=== PATIENT | male | born 1965 | race Caucasian/White ===

== ENCOUNTER 2023-04-18 10:57 | Inpatient (IN) | payer BC, SELFPAY ==
[2023-04-18] VITALS (8 sets, daily range): BP systolic 127–156; BP diastolic 89–99; PULSE 88–100; RESP 18–20; TEMP 36.4–36.9; O2SAT 97–100; BMI 28.1
--- NOTE | ~2023-04-18 | XR_ITS ---
EXAMINATION: XR chest 1V portable DATE: 04/18/2023 14:03 INDICATION: Cough. TECHNIQUE: A single frontal view of the chest was obtained. COMPARISON: None. FINDINGS: There is no pneumonia, pleural effusion, or pneumothorax. The heart size is normal. IMPRESSION: 1. No acute cardiopulmonary disease. Reviewed, dictated and finalized at location A. TING MACHINE OPERATOR HELPER
--- NOTE | ~2023-04-18 | CT_ITS ---
EXAMINATION: CT brain wo con DATE: 04/18/2023 12:08 INDICATION: Confusion. TECHNIQUE: Computed tomography (CT) of the head was performed without intravenous contrast. The mA wa s adjusted according to patient size. Iterative reconstruction technique was employed. The dose-lengt h product was 605.33 mGy-cm. COMPARISON: None FINDINGS: There is no intracranial hemorrhage, acute infarction, or abnormal intracranial mass lesion . There are scattered areas of low attenuation in the cerebral white matter. The ventricles are angely l in size. There is mild mucosal thickening in the paranasal sinuses. The mastoid air cells are angely l. The orbits are normal. IMPRESSION: 1. Moderate nonspecific cerebral white matter disease, which likely represents chronic small vessel i schemic disease. Reviewed, dictated and finalized at location A. EURIZING MACHINE OPERATOR IMPRESSION: 1. Moderate nonspecific cerebral white matter disease, which likely represents chronic small vessel ischemic disease.
--- NOTE | 2023-04-18 11:41 | ECG_ITS ---
Measurements Intervals [place] Rate: 94 P: 28 GA: 124 QRS: 32 QRSD: 90 T: 39 QT: 383 QTc: 480 Interpretive Statements SINUS RHYTHM VOLTAGE CRITERIA FOR LVH BORDERLINE ECG NO PREVIOUS ECG AVAILABLE FOR COMPARISON Electronically Signed On 04-18-2023 14:35:22 SECURITY SUPPORT ANALYST by Rich Murrell D.O.
--- NOTE | 2023-04-18 11:45 | PC.NURSE ---
Symptoms and NIH scale reviewed with Dr. Ingram, CT scan ordered while pt waiting on room
[2023-04-18 12:02] LABS: Basophils Absolute Auto 0.1 K/mm3 (0.0-0.1); Basophils Percent Auto 0.7 % (0.2-1.2); Eosinophils Absolute Auto 0.1 K/mm3 (0-0.3); Eosinophils Percent Auto 0.8 % (0-4.4); Hematocrit 34.1 % (42.0-52.0); Hemoglobin 11.7 g/dL (14.0-18.0); Immature Granulocyte Absolute 0.06 K/mm3 (0.00-0.031); Immature Granulocyte Percent A 0.5 % (0-0.5); Lymphocytes Absolute Auto 1.43 K/mm3 (0.9-3.2); Lymphocytes Percent Auto 11.4 % (18.3-44.2); Mean Corpuscular HGB Conc 34.3 g/dl (32-36); Mean Corpuscular Hemoglobin 30.3 pg (26-34); Mean Corpuscular Volume 88.3 fl (80-100); Mean Platelet Volume 10.5 fl (7.4-10.4); Monocytes Absolute Auto 1.5 K/mm3 (0.1-0.6); Monocytes Percent Auto 11.9 % (2.6-8.5); Neutrophils Absolute Auto 9.3 K/mm3 (1.3-6.7); Neutrophils Percent Auto 74.7 % (45.5-73.1); Platelet Count Result 349 k/mm3 (150-375); Red Blood Count 3.86 M/mm3 (4.6-6.20); White Blood Count 12.5 K/mm3 (4.5-10.0)
[2023-04-18 12:16] LABS: Alanine Aminotransferase 18 U/L (6-50); Albumin Level 4.1 g/dL (3.5-5.1); Alkaline Phosphatase 146 U/L (38-126); Anion Gap 13 mmol/L (8-16); Aspartate Amino Transferase 23 U/L (17-59); Bilirubin,Total 0.7 mg/dL (0.2-1.3); Blood Urea Nitrogen 21 mg/dL (9-20); Calcium 9.6 mg/dL (8.4-10.2); Carbon Dioxide 25 mmol/L (22-30); Chloride 85 mmol/L (98-107); Estimated CRCL calculation 62 ml/min; Estimated Glomerular Filt Rate > 60; Glucose 571 mg/dL (65-110); Potassium 3.6 mmol/L (3.4-5.0); Sodium 123 mmol/L (137-145)
[2023-04-18 12:20] LABS: Appearance Urine Turbid (Clear); Bacteria Urine None Seen /hpf; Bilirubin Urine Negative (Negative); Blood Urine 1+ (Negative); Color Urine Yellow (Yellow); Glucose Urine UA 3+ mg/dL (Negative); Ketones Urine 1+ mg/dL (Negative); Leukocyte Esterase Ur 2+ LEU/UL (Negative); Need Manual Microscopic Reviewed; Nitrate Urine Negative (Negative); Non Pathogenic Casts 0-2; Protein Urine 1+ mg/dL (Negative); RBC Urine 0-2 /hpf (0-2); Specific Grav Ur 1.023 (1.001-1.035); Squamous Epithelial Cell Urine None seen /hpf (Few); Urobilinogen Urine 0.2 mg/dL (<2.0); WBC Urine >100 /hpf; pH Urine 6.5 (5.0-9.0)
[2023-04-18 12:23] LABS: Add Urine Microscopic? YES
[2023-04-18] MEDS: SODIUM CHLORIDE 0.9% IV 2,000 ML 999 ML (13:01)
[2023-04-18 13:15] LABS: Prothrombin Time 13.9 Seconds (11.1-14.7)
[2023-04-18 13:21] LABS: Alveolar/Arterial O2 Gradient 18.2 mmHg; Base Excess ABG 1.3 mEq/l (+/-2.0); Carboxyhemoglobin 0.5 % THb (0-2.0); Device ROOM AIR; Fractional Inspired Oxygen 21 %; HCO3 ABG 24.8 mEq/l (22.0-26.0); Methemoglobin ABG 0.1 %THb (0-1.5); Modified Allen's Test Pass; Oxygen Content ABG 17.3 %vol (16.0-22.0); Oxygen Saturation ABG 97.2 % (95.0-100.0); Oxyhemoglobin 95.4 % THb (90.0-100.0); PCO2 ABG 35.8 mmHg (35.0-45.0); PO2 ABG 88.7 mmHg (80.0-100.0); PO2 FiO2 Ratio Arterial Blood 4.22 %; Site Drawn RIGHT RADIAL; Total Hemoglobin 12.8 g/dL (12.0-18.0); pH ABG 7.459 (7.350-7.450)
--- NOTE | 2023-04-18 13:46 | ED.NEUROSD ---
HPI - Neuro Symptoms/Deficit General Chief Complaint: Neuro Symptoms/Deficit <Saira Starr PA-C - Last Filed: 04/18/23 16:17> Stated Complaint: CONFUSION INSOMNIA SINCE LAST NIGHT <JELENA Sarabia Last Filed: 04/18/23 16:17> Time Seen by Provider: 04/18/23 12:52 <JELENA Sarabia Last Filed: 04/18/23 16:17> Source: patient <JELENA Sarabia Last Filed: 04/18/23 16:17> Mode of arrival: ambulatory <JELENA Sarabia Last Filed: 04/18/23 16:17> Limitations: no limitations <JELENA Sarabia Last Filed: 04/18/23 16:17> History of Present Illness HPI Narrative: Patient is a 57-year-old male, with past medical history of diabetes, who presents the ED with report of altered mental status. Patient reports he has been confused since last night. He states he just felt somewhat disoriented, difficulty sleeping, and could not remember simple things that are well known to him. He notes he forgot his phone number. He also notes this morning at work he forgot his password which is unusual for him. He was then brought here for further evaluation. He denies RIBEIRO, dizziness, vision changes, slurred speech, focal weakness or numbness, difficulty ambulating. Denies recent fevers, CP, SOB, N/V, abd pain, dysuria, hematuria. Patient does report having a dry cough for the last 1 month. <JELENA Sarabia Last Filed: 04/18/23 16:17> Related Data Allergies/Adverse Reactions: Allergies Allergy/AdvReac Type Severity Reaction Status Date / Time No Known Allergies Allergy Verified 04/18/23 13:26 <JELENA Sarabia Last Filed: 04/18/23 16:17> Review of Systems Review of Systems: CONSTITUTIONAL: Denies fever, chills, or sweats. ENT: Denies vision changes, rhinorrhea, congestion, sore throat. CARDIOVASCULAR: Denies chest pain RESPIRATORY: Reports cough X 1mo. Denies dyspnea. GASTROINTESTINAL: Denies abdominal pain, nausea, vomiting, or diarrhea. GENITOURINARY: Denies dysuria or hematuria. MUSCULOSKELETAL: Denies back pain, extremity pain, myalgia. NEUROLOGIC: See HPI. <Saira Starr PA-C - Last Filed: 04/18/23 16:17> All systems reviewed & are unremarkable except as noted in HPI and below <Saira Starr PA-C - Last Filed: 04/18/23 16:17> Exam Narrative: GENERAL: Well appearing, well-nourished, non-toxic, in no acute distress. HEAD: Normocephalic, atraumatic. EYES: PERRL/EOMI, conjunctivae clear bilaterally. No nystagmus. NECK: Supple. No meningeal signs. RESPIRATORY: Airway patent, respirations nonlabored. Clear to auscultation bilaterally, no rales, rhonchi, wheezing. CARDIOVASCULAR: Regular rate and rhythm without murmurs, rubs, or gallops. Radial pulses 2+ and equal bilaterally. ABDOMINAL: Soft, nontender, nondistended. Normoactive BS. MUSCULOSKELETAL: Moves all extremities. No gross deformities. SKIN: Warm, dry, normal color. No rashes. NEURO: A&O X3. Speech clear. Follows commands. CN II-XII intact. Sensation grossly intact. No ataxic movements. Strength 5/5 in upper and lower extremities bilaterally. Mlmh-ys-ecof and kyqqwk-tq-mela testing intact bilaterally. No pronator drift. Equal smt machine operator strength bilaterally. PSYCHIATRIC: Appropriate mood and affect. Normal interaction. <Saira Starr PA-C - Last Filed: 04/18/23 16:17> Course COVER STRIPPER/PA Physician Supervision This visit was performed by both a physician and an APC. I performed all aspects of the MDM as documented. <Prashanth Ingram MD - Last Filed: 04/18/23 19:20> Vital Signs Vital signs: Vital Signs Temperature 97.5 F L 04/18/23 11:36 Pulse Rate 100 04/18/23 11:36 Respiratory Rate 18 04/18/23 11:36 Blood Pressure 152/92 H 04/18/23 11:36 Pulse Oximetry 99 04/18/23 11:36 Oxygen Delivery Room Air 04/18/23 11:36 Temperature 97.8 F 04/18/23 18:04 Pulse Rate 91 04/18/23 18:04 Respiratory
[2023-04-18 14:32] LABS: Ethanol < 10 mg/dL (<10)
[2023-04-18 14:50] LABS: Influenza A QL RT-PCR Negative (Negative); Influenza B QL RT-PCR Negative (Negative); RSV RNA, RT-PCR Negative (Negative); SARS-CoV-2 RNA PCR Negative (Negative)
[2023-04-18 15:13] LABS: Amphetamine Screen Urine Negative (Negative); Barbiturate Screen Urine Negative (Negative); Benzodiazepines Screen Urine Negative (Negative); Cannabinoid Screen Urine Negative (Negative); Cocaine Screen Urine Negative (Negative); Methadone Screen Urine Negative (Negative); Opiate Screen Urine Negative (Negative); Phencyclidine Screen Urine Negative (Negative)
[2023-04-18 15:16] LABS: Glucose Point of Care 397 mg/dl (65-105)
[2023-04-18 17:28] LABS: Hemoglobin A1C > 14.0 % (<5.7)
[2023-04-18] MEDS: SODIUM CHLORIDE 0.9% IV 1,000 ML 100 ML IV CONT (18:36)
[2023-04-18 18:38] LABS: Glucose Point of Care 404 mg/dl (65-105)
--- NOTE | 2023-04-18 18:40 | PC.NURSE ---
informed MICHELL Chávez of BS 404 and she informed me hospitalist aware of elevated BS and will manage when pt admitted.
--- NOTE | 2023-04-18 19:37 | ADMGEN ---
This patient, Marito Wong, was admitted to Medical Room 251-01. Patient/family oriented to hospital policies and general routines including ID bracelet, bed and alarms, visiting hours, pain management, procedures, bathroom and other care routines, personal items, smoking policy, room service/diet, and visiting hours. Information on how to activate the Rapid Response Team has been discussed. Patient/Family are encouraged to report perceived risks to care and to ask questions if they do not understand what they are told or what they should do.
[2023-04-18] MEDS: INSULIN GLARGINE (*BKC) 100 UNITS/ML 15 UNITS SUB-Q (20:23)
[2023-04-18] MEDS: INSULIN HUMAN REGULAR (*BKC) 100 UNITS/ML 8 UNITS SUB-Q (20:24)
--- NOTE | 2023-04-18 20:42 | PM.IMHP ---
H&P: HPI History of Present Illness Date/Time: 04/18/23 20:42 Chief Complaint: Generalized weakness and confusion Narrative: Patient is a 53-year-old diabetic who is noncompliant with medications comes to emergency room complaining of some confusion lasting about a few days. Patient states he has just not been feeling well for the last to a point that today he got so weak and lethargic that he almost passed out in the bathroom. 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 Denies any head injury no slurred speech no focal weakness no difficulty ambulating nausea vomiting diarrhea hematemesis hemoptysis Review of Systems Constitutional: Constitutional: Reports lethargy Eyes: Eyes: Reports no additional eye complaints ENT: Reports system reviewed and no additional complaints, except as documented Cardiovascular: Cardiovascular: Reports lightheadedness Respiratory: Respiratory: Reports dyspnea Gastrointestinal: Gastrointestinal: Reports no additional gastrointestinal complaints Genitourinary: Genitourinary: Reports flank pain, Reports urinary frequency, Reports urinary hesitancy and Reports urinary urgency Musculoskeletal: Musculoskeletal: Reports no additional musculoskeletal complaints [facility] Social History Social History Smoking status: Never smoker Alcohol intake: current Drinks per week: 3 Substance use: never Substance use type: does not use Do You Feel Safe in your Home?: Yes Lack of Transportation: No Lack of Food: Never True Current Housing: I Have Housing Concerned About Future Housing: No Difficulty Paying Gas/Electric Bills: No Difficulty Paying for Meds: No Currently Unemployed: YES Education: Associate Degree Difficulty w/ Childcare or Family Care: No Spiritual care concerns: No Meds Home Medications and Allergies Home Medications Medication Instructions Recorded Confirmed Type No Home Medications 04/18/23 04/18/23 History Allergies Allergy/AdvReac Type Severity Reaction Status Date / Time No Known Allergies Allergy Verified 04/18/23 13:26 Vital Signs Vital Signs - 24 hr 04/18/23 11:36 04/18/23 13:00 04/18/23 15:02 Temperature 36.4 C L 36.6 C 36.7 C Pulse Rate 100 91 93 Respiratory Rate 18 20 20 Blood Pressure 152/92 H 151/89 H 127/93 H Pulse Oximetry 99 100 100 Oxygen Delivery Room Air 04/18/23 14:00 04/18/23 16:00 04/18/23 18:04 Temperature 36.4 C 36.7 C 36.6 C Pulse Rate 88 88 91 Respiratory Rate 20 18 18 Blood Pressure 137/95 H 138/99 H 156/93 H Pulse Oximetry 100 98 98 Oxygen Delivery 04/18/23 17:00 04/18/23 19:54 Temperature 36.6 C 36.9 C Pulse Rate 92 91 Respiratory Rate 18 20 Blood Pressure 146/99 H 155/91 H Pulse Oximetry 99 97 Oxygen Delivery Exam Narrative: GENERAL: Well appearing, no acute distress. HEAD: Normocephalic, atraumatic. NECK: Supple. No adenopathy, no masses. RESPIRATORY: respirations nonlabored. , no rales, wheezing. CARDIOVASCULAR: Regular rate and rhythm without murmurs, . Peripheral pulses 2+ and equal bilaterally. ABDOMINAL: Soft, nontender, nondistended, no hepatosplenomegaly. Normoactive BS. MUSCULOSKELETAL: no Epigastric and no hypochondrial tenderness SKIN: Warm, dry, NEURO: A&O X3. Moves all extremities H&P: Results Labs Labs: Short CBC 04/18/23 Range/Units 11:52 WBC 12.5 H (4.5-10.0) K/mm3 Hgb 11.7 L (14.0-18.0) g/dL Hct 34.1 L (42.0-52.0) % Plt Count 349 (150-375) k/mm3 [facility] 04/18/23 11:52 Sodium 123 L Potassium 3.6 Chloride 85 L Carbon Dioxide 25 BUN 21 H Creatinine 1.00 Glucose 571 H* Calcium 9.6 Liver Function 04/18/23 Range/Units 11:52 Total Bilirubin 0.7 (0.2-1.3) mg/dL AST 23 (17-59) U/L ALT 18 (6-50
[2023-04-18 20:55] LABS: Basophils Absolute Auto 0.1 K/mm3 (0.0-0.1); Basophils Percent Auto 1.1 % (0.2-1.2); Eosinophils Absolute Auto 0.5 K/mm3 (0-0.3); Eosinophils Percent Auto 4.7 % (0-4.4); Hematocrit 32.7 % (42.0-52.0); Hemoglobin 11.2 g/dL (14.0-18.0); Immature Granulocyte Absolute 0.04 K/mm3 (0.00-0.031); Immature Granulocyte Percent A 0.4 % (0-0.5); Lymphocytes Absolute Auto 1.29 K/mm3 (0.9-3.2); Lymphocytes Percent Auto 13.2 % (18.3-44.2); Mean Corpuscular HGB Conc 34.3 g/dl (32-36); Mean Corpuscular Hemoglobin 30.8 pg (26-34); Mean Corpuscular Volume 89.8 fl (80-100); Mean Platelet Volume 10.4 fl (7.4-10.4); Monocytes Absolute Auto 1.3 K/mm3 (0.1-0.6); Monocytes Percent Auto 12.8 % (2.6-8.5); Neutrophils Absolute Auto 6.6 K/mm3 (1.3-6.7); Neutrophils Percent Auto 67.8 % (45.5-73.1); Platelet Count Result 320 k/mm3 (150-375); Red Blood Count 3.64 M/mm3 (4.6-6.20); White Blood Count 9.8 K/mm3 (4.5-10.0)
[2023-04-18 21:08] LABS: Alanine Aminotransferase 15 U/L (6-50); Albumin Level 3.5 g/dL (3.5-5.1); Alkaline Phosphatase 122 U/L (38-126); Anion Gap 9 mmol/L (8-16); Aspartate Amino Transferase 18 U/L (17-59); Bilirubin,Total 0.7 mg/dL (0.2-1.3); Blood Urea Nitrogen 19 mg/dL (9-20); Calcium 8.7 mg/dL (8.4-10.2); Carbon Dioxide 26 mmol/L (22-30); Chloride 95 mmol/L (98-107); Estimated CRCL calculation 76 ml/min; Estimated Glomerular Filt Rate > 60; Glucose 385 mg/dL (65-110); Potassium 3.6 mmol/L (3.4-5.0); Sodium 130 mmol/L (137-145)
[2023-04-18 23:03] LABS: Glucose Point of Care 241 mg/dl (65-105)
[2023-04-19 03:12] VITALS: BP 123/70; PULSE 83; RESP 20; TEMP 36.3; O2SAT 98
[2023-04-19 03:47] LABS: Glucose Point of Care 384 mg/dl (65-105)
[2023-04-19] MEDS: SODIUM CHLORIDE 0.9% IV 1,000 ML 100 ML IV CONT ×2 (04:45→17:49)
[2023-04-19 08:37] LABS: Glucose Point of Care 323 mg/dl (65-105)
[2023-04-19] MEDS: lisinopriL 10 MG TABLET PO (09:28)
[2023-04-19] MEDS: ATORVASTATIN 40 MG TABLET PO (09:28)
[2023-04-19] MEDS: ENOXAPARIN 40 MG/0.4 ML SYRINGE SUB-Q (09:28)
[2023-04-19] MEDS: cefTRIAXone 2 GM/NS 100 ML 2 GM/100 ML BAG IVPB (09:29)
[2023-04-19] MEDS: INSULIN ASPART (*BKC) 100 UNITS/ML 8 UNITS SUB-Q ×3 (09:34→17:45)
[2023-04-19 10:55] VITALS: BMI 28.1
--- NOTE | 2023-04-19 11:23 | PM.IMPN ---
Progress Note: A&P Assessment and Plan (1) AMS (altered mental status): Qualifiers: Altered mental status type: unspecified Qualified Code(s): R41.82 - Altered mental status, unspecified Code(s): R41.82 - Altered mental status, unspecified Status: Acute (2) UTI (urinary tract infection): Qualifiers: Hematuria presence: without hematuria Urinary tract infection type: acute cystitis Qualified Code(s): N30.00 - Acute cystitis without hematuria Code(s): N39.0 - Urinary tract infection, site not specified Status: Acute (3) Uncontrolled diabetes mellitus: Qualifiers: Diabetes mellitus type: type 2 Glycemic state: with hyperglycemia Qualified Code(s): E11.65 - Type 2 diabetes mellitus with hyperglycemia Status: Acute (4) Pseudohyponatremia: Code(s): R79.89 - Other specified abnormal findings of blood chemistry Status: Acute Plan Hemoglobin A1c 14.2 Optimize DOMINICK-inhibitor and statin added lisinopril and atorvastatin Routine glucose monitoring. Watch for Hypoglycemia. BMI goal < 25 Restarting patient on Lantus and Humalog with meals Exercise, Diet ( low salt- low carb) Weight loss Routinely check for urine microalbuminuria Check TSH.? An LDL Monitor anion gap. 13 Continue IV fluids. Hypornatremia due to hyperglycemia UTI Urine and blood cultures and sensitivity. Pending Continue IV hydration. WBC 12.5. ? sodium 130 Monitor CBC CMP monitor for sepsis. Monitor vital signs Start antibiotics Rocephin Start probiotics to prevent antibiotic induced diarrhea Blood cultures Monitor for obstructive uropathy and pyelonephritis History of hypertension on lisinopril DVT prophylaxis.? Lovenox GI prophylaxis.? Protonix All records reviewed Discussed plan of care with the nursing staff and with the patient in detail.? Answered all questions and concerns from the patient.? All labs have been reviewed. Code status updated ?dictation may have been done utilizing a voice recognition system.? Attempts have been made to correct errors. However, there may be uncorrected grammatical, spelling, and recognition errors present. Subjective Date/time seen: 04/19/23 11:23 Interval history: No new complaints no chest pain or shortness of breath appears comfortable no urgency frequency of urination no hematuria Review of Systems Review of Systems: All systems reviewed & are unremarkable except as noted in HPI and below Exam Narrative: GENERAL: Well appearing, no acute distress. HEAD: Normocephalic, atraumatic. NECK: Supple. No adenopathy, no masses. RESPIRATORY: respirations nonlabored. , no rales, wheezing. CARDIOVASCULAR: Regular rate and rhythm without murmurs, . Peripheral pulses 2+ and equal bilaterally. ABDOMINAL: Soft, nontender, nondistended, no hepatosplenomegaly. Normoactive BS. MUSCULOSKELETAL: no Epigastric and no hypochondrial tenderness SKIN: Warm, dry, NEURO: A&O X3. Moves all extremities Objective Data Vital Signs Vital Signs: Vital Signs - 24 hr 04/18/23 11:36 04/18/23 13:00 04/18/23 15:02 Temperature 36.4 C L 36.6 C 36.7 C Pulse Rate 100 91 93 Respiratory Rate 18 20 20 Blood Pressure 152/92 H 151/89 H 127/93 H Pulse Oximetry 99 100 100 Oxygen Delivery Room Air 04/18/23 14:00 04/18/23 16:00 04/18/23 18:04 Temperature 36.4 C 36.7 C 36.6 C Pulse Rate 88 88 91 Respiratory Rate 20 18 18 Blood Pressure 137/95 H 138/99 H 156/93 H Pulse Oximetry 100 98 98 Oxygen Delivery 04/18/23 17:00 04/18/23 19:54 04/19/23 03:12 Temperature 36.6 C 36.9 C 36.3 C L Pulse Rate 92 91 83 Respiratory Rate 18 20 20 Blood Pressure 146/99 H 155/91 H 123/70 Pulse Oximetry 99 97 98 Oxygen Delivery 04/19/23 09:45 Temperature Pulse Rate Respiratory Rate Blood Pressure Pulse Oximetry Oxygen Delivery Room Air Intake/Output Intake/Output: Intake & Output 04/16/23 04/17/23 04/18/23 04/19/23 23:59 2
[2023-04-19 12:15] LABS: Glucose Point of Care 177 mg/dl (65-105)
[2023-04-19 14:10] VITALS: BP 132/88; PULSE 91; RESP 16; TEMP 36.5; O2SAT 100
[2023-04-19 17:14] LABS: Glucose Point of Care 197 mg/dl (65-105)
[2023-04-19 20:00] VITALS: PULSE 92; RESP 20; O2SAT 92
[2023-04-19 20:08] VITALS: BP 157/87; PULSE 92; RESP 20; TEMP 36.6; O2SAT 92
[2023-04-19 20:52] LABS: Glucose Point of Care 186 mg/dl (65-105)
[2023-04-19] MEDS: INSULIN GLARGINE (*BKC) 100 UNITS/ML 15 UNITS SUB-Q (21:14)
[2023-04-20 03:55] VITALS: BP 164/90; PULSE 78; RESP 20; TEMP 36.6; O2SAT 99
[2023-04-20] MEDS: SODIUM CHLORIDE 0.9% IV 1,000 ML 100 ML IV CONT ×2 (03:59→14:34)
[2023-04-20 05:49] LABS: Cholesterol 183 mg/dL (0-200); HDL Direct 23 mg/dL; Triglycerides 258 mg/dL (<150)
[2023-04-20 05:59] LABS: LDL Cholesterol Direct 105 mg/dL
[2023-04-20 08:09] LABS: Glucose Point of Care 161 mg/dl (65-105)
[2023-04-20] MEDS: lisinopriL 10 MG TABLET PO (09:40)
[2023-04-20] MEDS: ATORVASTATIN 40 MG TABLET PO (09:40)
[2023-04-20] MEDS: ENOXAPARIN 40 MG/0.4 ML SYRINGE SUB-Q (09:40)
[2023-04-20] MEDS: cefTRIAXone 2 GM/NS 100 ML 2 GM/100 ML BAG IVPB (09:40)
[2023-04-20 09:42] VITALS: BP 160/94; PULSE 88; RESP 16
[2023-04-20 09:43] LABS: Glucose Point of Care 275 mg/dl (65-105)
[2023-04-20] MEDS: INSULIN ASPART (*BKC) 100 UNITS/ML 8 UNITS SUB-Q ×2 (09:44→12:18)
--- NOTE | 2023-04-20 10:47 | PM.IMPN ---
Progress Note: A&P Assessment and Plan (1) AMS (altered mental status): Qualifiers: Altered mental status type: unspecified Qualified Code(s): R41.82 - Altered mental status, unspecified Code(s): R41.82 - Altered mental status, unspecified Status: Acute (2) UTI (urinary tract infection): Qualifiers: Hematuria presence: without hematuria Urinary tract infection type: acute cystitis Qualified Code(s): N30.00 - Acute cystitis without hematuria Code(s): N39.0 - Urinary tract infection, site not specified Status: Acute (3) Uncontrolled diabetes mellitus: Qualifiers: Diabetes mellitus type: type 2 Glycemic state: with hyperglycemia Qualified Code(s): E11.65 - Type 2 diabetes mellitus with hyperglycemia Status: Acute (4) Pseudohyponatremia: Code(s): R79.89 - Other specified abnormal findings of blood chemistry Status: Acute Plan Hemoglobin A1c 14.2 Optimize DOMINICK-inhibitor and statin increase the dose of lisinopril to 20 mg continue atorvastatin Routine glucose monitoring. Watch for Hypoglycemia. BMI goal < 25 Restarting patient on Lantus and Humalog with meals Exercise, Diet ( low salt- low carb) Weight loss Routinely check for urine microalbuminuria An LDL 105 Monitor anion gap. 13 is normal Continue IV fluids. Hypornatremia due to hyperglycemia UTI Urine and blood cultures and sensitivity. Coagulase Negative Staph Sensitive pending Continue IV hydration. WBC 12.5. ? sodium 130 Monitor CBC CMP monitor for sepsis. Monitor vital signs antibiotics Rocephin Blood cultures no growth Monitor for obstructive uropathy and pyelonephritis History of hypertension on lisinopril Plan is to possibly discharge the patient tomorrow once we get the sensitivity back DVT prophylaxis.? Lovenox has GI prophylaxis.? Protonix All records reviewed Discussed plan of care with the nursing staff and with the patient in detail.? Answered all questions and concerns from the patient.? All labs have been reviewed. Code status updated ?dictation may have been done utilizing a voice recognition system.? Attempts have been made to correct errors. However, there may be uncorrected grammatical, spelling, and recognition errors present. Subjective Date/time seen: 04/20/23 10:47 Interval history: Patient seen and doing well much less confused no abdominal pain no urgency frequency of urination no chest pain or shortness of breath patient blood pressure is running slightly high still on IV antibiotics urine sensitivity elevated Review of Systems Review of Systems: All systems reviewed & are unremarkable except as noted in HPI and below Exam Narrative: GENERAL: Well appearing, no acute distress. HEAD: Normocephalic, atraumatic. NECK: Supple. No adenopathy, no masses. RESPIRATORY: respirations nonlabored. , no rales, wheezing. CARDIOVASCULAR: Regular rate and rhythm without murmurs, . Peripheral pulses 2+ and equal bilaterally. ABDOMINAL: Soft, nontender, nondistended, no hepatosplenomegaly. Normoactive BS. MUSCULOSKELETAL: no Epigastric and no hypochondrial tenderness SKIN: Warm, dry, NEURO: A&O X3. Moves all extremities Objective Data Vital Signs Vital Signs: Vital Signs - 24 hr 04/19/23 14:10 04/19/23 20:08 04/19/23 20:00 Temperature 36.5 C 36.6 C Pulse Rate 91 92 92 Respiratory Rate 16 20 20 Blood Pressure 132/88 157/87 H Pulse Oximetry 100 92 92 Oxygen Delivery Room Air 04/20/23 03:55 04/20/23 09:42 Temperature 36.6 C Pulse Rate 78 88 Respiratory Rate 20 16 Blood Pressure 164/90 H 160/94 H Pulse Oximetry 99 Oxygen Delivery Intake/Output Intake/Output: Intake & Output 04/17/23 04/18/23 04/19/23 04/20/23 23:59 23:59 23:59 23:59 Intake Total 2049 4560 1630 Output Total 2810 1375 Balance 2049 1750 255 Meds/Results Medications: Active Medications Generic Name Dose Route Start Last Admin Trade Na
[2023-04-20 11:07] LABS: Hematocrit 34.6 % (42.0-52.0); Hemoglobin 11.4 g/dL (14.0-18.0); Mean Corpuscular HGB Conc 32.9 g/dl (32-36); Mean Corpuscular Hemoglobin 30.8 pg (26-34); Mean Corpuscular Volume 93.5 fl (80-100); Mean Platelet Volume 10.8 fl (7.4-10.4); Platelet Count Result 300 k/mm3 (150-375); Red Cell Distribution Width 12.4 % (11.5-14.5); White Blood Count 7.3 K/mm3 (4.5-10.0)
[2023-04-20 11:56] LABS: Alanine Aminotransferase 14 U/L (6-50); Alkaline Phosphatase 98 U/L (38-126); Anion Gap 7 mmol/L (8-16); Aspartate Amino Transferase 23 U/L (17-59); Bilirubin,Total 0.3 mg/dL (0.2-1.3); Blood Urea Nitrogen 10 mg/dL (9-20); Calcium 8.5 mg/dL (8.4-10.2); Carbon Dioxide 25 mmol/L (22-30); Chloride 107 mmol/L (98-107); Estimated CRCL calculation 86 ml/min; Estimated Glomerular Filt Rate > 60; Glucose 158 mg/dL (65-110); Potassium 3.5 mmol/L (3.4-5.0); Sodium 139 mmol/L (137-145)
[2023-04-20 12:11] LABS: Glucose Point of Care 206 mg/dl (65-105)
[2023-04-20 13:38] VITALS: BP 174/90; PULSE 69; RESP 14; TEMP 36.5; O2SAT 100
[2023-04-20 17:05] LABS: Glucose Point of Care 119 mg/dl (65-105)
[2023-04-20] MEDS: INSULIN ASPART (*BKC) 100 UNITS/ML SUB-Q (17:16)
[2023-04-20 17:19] VITALS: BP 164/92
[2023-04-20 19:32] VITALS: BP 156/94; PULSE 92; RESP 20; TEMP 36.7; O2SAT 100
[2023-04-20 20:00] VITALS: PULSE 92; RESP 20; O2SAT 100
[2023-04-20 20:46] LABS: Glucose Point of Care 198 mg/dl (65-105)
[2023-04-20] MEDS: INSULIN GLARGINE (*BKC) 100 UNITS/ML 15 UNITS SUB-Q (21:12)
[2023-04-20] MEDS: CIPROFLOXACIN 500 MG TAB PO (21:12)
[2023-04-21] MEDS: SODIUM CHLORIDE 0.9% IV 1,000 ML 100 ML IV CONT (00:47)
[2023-04-21 04:46] LABS: Hematocrit 34.8 % (42.0-52.0); Mean Corpuscular HGB Conc 34.5 g/dl (32-36); Mean Corpuscular Hemoglobin 30.8 pg (26-34); Mean Corpuscular Volume 89.5 fl (80-100); Platelet Count Result 284 k/mm3 (150-375); Red Blood Count 3.89 M/mm3 (4.6-6.20); Red Cell Distribution Width 12.1 % (11.5-14.5); White Blood Count 6.7 K/mm3 (4.5-10.0)
[2023-04-21 05:00] LABS: Alanine Aminotransferase 13 U/L (6-50); Albumin Level 3.2 g/dL (3.5-5.1); Alkaline Phosphatase 92 U/L (38-126); Anion Gap 5 mmol/L (8-16); Aspartate Amino Transferase 20 U/L (17-59); Bilirubin,Total 0.3 mg/dL (0.2-1.3); Blood Urea Nitrogen 6 mg/dL (9-20); Calcium 8.3 mg/dL (8.4-10.2); Carbon Dioxide 26 mmol/L (22-30); Chloride 106 mmol/L (98-107); Estimated CRCL calculation 86 ml/min; Estimated Glomerular Filt Rate > 60; Glucose 161 mg/dL (65-110); Potassium 3.1 mmol/L (3.4-5.0); Sodium 137 mmol/L (137-145)
[2023-04-21 05:01] VITALS: BP 175/87; PULSE 86; RESP 20; TEMP 36.6; O2SAT 100
[2023-04-21 08:26] LABS: Glucose Point of Care 199 mg/dl (65-105)
[2023-04-21] MEDS: INSULIN ASPART (*BKC) 100 UNITS/ML SUB-Q ×3 (08:40→12:30)
--- NOTE | 2023-04-21 08:42 | PM.DS ---
DS: Admitting Diagnosis Discharge Date 04/21/2023 Admitting Diagnosis Altered mental status DS: Discharge Diagnosis Discharge Diagnosis (1) AMS (altered mental status): Qualifiers: Altered mental status type: unspecified Qualified Code(s): R41.82 - Altered mental status, unspecified Code(s): R41.82 - Altered mental status, unspecified Status: Acute (2) UTI (urinary tract infection): Qualifiers: Hematuria presence: without hematuria Urinary tract infection type: acute cystitis Qualified Code(s): N30.00 - Acute cystitis without hematuria Code(s): N39.0 - Urinary tract infection, site not specified Status: Acute (3) Uncontrolled diabetes mellitus: Qualifiers: Diabetes mellitus type: type 2 Glycemic state: with hyperglycemia Qualified Code(s): E11.65 - Type 2 diabetes mellitus with hyperglycemia Status: Acute (4) Pseudohyponatremia: Code(s): R79.89 - Other specified abnormal findings of blood chemistry Status: Acute DS: Summary Hospital Course Hospital Course: The patient is a 57-year-old male who came to the hospital with confusion has not been taking care his diabetes blood sugars were in the 500s hemoglobin A1c was 14 patient also diagnosed with urinary tract infection on. Patient grew coagulase negative Staph sensitive to Cipro patient did well during the hospital stay patient was started on Lipitor patient was optimized with Erwin inhibitors lisinopril 40 mg q.day amlodipine 5 mg has been added because patient's blood pressure has still been high. Of medications sent to the pharmacy. Spoke patient about diet weight loss and exercise also advised to see the viscosity tester as an outpatient. Status at Discharge Functional status at discharge: independent ambulation Time Spent with Patient Time attestation: Total time spent providing and/or coordinating discharge services: Exam Narrative: GENERAL: Well appearing, no acute distress. HEAD: Normocephalic, atraumatic. NECK: Supple. No adenopathy, no masses. RESPIRATORY: respirations nonlabored. , no rales, wheezing. CARDIOVASCULAR: Regular rate and rhythm without murmurs, . Peripheral pulses 2+ and equal bilaterally. ABDOMINAL: Soft, nontender, nondistended, no hepatosplenomegaly. Normoactive BS. MUSCULOSKELETAL: no Epigastric and no hypochondrial tenderness SKIN: Warm, dry, NEURO: A&O X3. Moves all extremities DS: Data Data Completed and Pending Labs on day of discharge: Labs from last 24 hours 04/21/23 04/21/23 04/20/23 08:16 04:32 20:38 WBC 6.7 RBC 3.89 L Hgb 12.0 L Hct 34.8 L MCV 89.5 MCH 30.8 MCHC 34.5 RDW 12.1 Plt Count 284 MPV 10.0 Sodium 137 Potassium 3.1 L Chloride 106 Carbon Dioxide 26 Anion Gap 5 L BUN 6 L Creatinine 0.70 Estim Creat Clear Calc 86 Estimated GFR > 60 Glucose 161 H POC Capillary Glucose 199 H 198 H Calcium 8.3 L Total Bilirubin 0.3 AST 20 ALT 13 Alkaline Phosphatase 92 Total Protein 7.0 Albumin 3.2 L 04/20/23 04/20/23 04/20/23 16:41 11:57 09:39 WBC RBC Hgb Hct MCV MCH MCHC RDW Plt Count MPV Sodium Potassium Chloride Carbon Dioxide Anion Gap BUN Creatinine Estim Creat Clear Calc Estimated GFR Glucose POC Capillary Glucose 119 H 206 H 275 H Calcium Total Bilirubin AST ALT Alkaline Phosphatase Total Protein Albumin 04/20/23 05:27 WBC 7.3 RBC 3.70 L Hgb 11.4 L Hct 34.6 L MCV 93.5 MCH 30.8 MCHC 32.9 RDW 12.4 Plt Count 300 MPV 10.8 H Sodium 139 Potassium 3.5 Chloride 107 Carbon Dioxide 25 Anion Gap 7 L BUN 10 D Creatinine 0.70 Estim Creat Clear Calc 86 Estimated GFR > 60 Glucose 158 H POC Capillary Glucose Calcium 8.5 Total Bilirubin 0.3 AST 23 ALT 14 Alkaline Phosphatase 98 Total Protein
[2023-04-21 08:53] VITALS: BP 170/94; PULSE 84; RESP 16; O2SAT 100
[2023-04-21] MEDS: lisinopriL 20 MG TABLET PO ×2 (09:03→09:04)
[2023-04-21] MEDS: amLODIPine BESYLATE 5 MG TABLET PO (09:03)
[2023-04-21] MEDS: CIPROFLOXACIN 500 MG TAB PO (09:03)
[2023-04-21] MEDS: ATORVASTATIN 40 MG TABLET PO (09:03)
[2023-04-21] MEDS: ENOXAPARIN 40 MG/0.4 ML SYRINGE SUB-Q (09:04)
[2023-04-21] MEDS: POTASSIUM CHLORIDE 20 MEQ ER TABLET 40 MEQ PO (09:07)
[2023-04-21 10:15] VITALS: BP 162/90
[2023-04-21 12:16] LABS: Glucose Point of Care 223 mg/dl (65-105)
[2023-04-21 14:00] VITALS: BP 164/88; PULSE 79; RESP 16; TEMP 36.4; O2SAT 100
--- NOTE | 2023-04-21 14:35 | PC.NURSE ---
Spoke with Kevin in [place] to verify that they have insulin glargine and aspart in stock as ordered for DC
== END 2023-04-21 16:05 | disposition home or self-care (01) | DRG 690 ==
LOC: ANHED 16:17 → ANH2MED 04-19 08:09
PROVIDERS: Emergency Medicine; Student in an Organized Health Care Education/Training Program; Admitting Provider Internal Medicine; Emergency Provider Physician Assistant; Visit Provider Internal Medicine
DX: N30.90 Cystitis, unspecified without hematuria (principal); Z16.23 Resistance to quinolones and fluoroquinolones; B95.7 Other staphylococcus as the cause of diseases classified elsewhere; E11.65 Type 2 diabetes mellitus with hyperglycemia; I10 Essential (primary) hypertension; Z20.822 Contact with and (suspected) exposure to COVID-19
CPT/HCPCS: 36415; 36600; 70450; 71045; 80053; 80061; 80307; 81001; 82010; 82375; 82805; 82948; 83036; 83050; 85025; 85027; 85610; 85730; 87040; 87086; 87147; 87181; 87186; 87637; 93005; 96361; 96365; 99285; A9270; J0696; J1650; J1815; J7030

== ENCOUNTER 2023-08-09 11:46 | Emergency (ER) | payer BC, SELFPAY ==
[2023-08-09 11:48] VITALS: BP 207/91; PULSE 95; RESP 20; TEMP 36.9; O2SAT 99
[2023-08-09 12:03] LABS: Glucose Point of Care 52 mg/dl (65-105)
--- NOTE | 2023-08-09 12:08 | ECG_ITS ---
SEE SCANNED COPY FOR CONFIRMED REPORT MTDD
[2023-08-09 12:20] VITALS: BP 143/83
--- NOTE | 2023-08-09 12:24 | PC.NURSE ---
patient decided that he was going to leave from waiting room. rechecked BP and it was lower. patient states that he already was advised to take an additional dose of BP meds and is being started on another medication for BP as well. patient drank total of 3 OJ before he left without being seen. advised to get something to eat as soon as possible and to return as needed. verbalized understanding
== END 2023-08-09 12:47 | disposition left against medical advice (07) ==
LOC: ANHED 12:32
PROVIDERS: Emergency Provider Emergency Medicine; PCP Emergency Medicine
DX: I10 Essential (primary) hypertension (principal)
CPT/HCPCS: 82948; 93005; 99199

== ENCOUNTER 2023-09-21 14:43 | Observation (INO) | payer BC, SELFPAY ==
--- NOTE | ~2023-09-21 | CT_ITS ---
CT brain wo con Ordering provider: Danita Dent PA-C History: 57 years Male with . slurred speech, weakness . Comparison: April 18, 2023 Technique: CT of the head without contrast. Radiation reduction technique utilized. DLP is 605.33mGy. FINDINGS: BRAIN PARENCHYMA AND CSF SPACES: Mild leukoaraiosis and diffuse cortical atrophy. Mild atheromatous d isease. 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 No midline shift, mass effect or hemorrhage. The br ain parenchyma and CSF spaces are otherwise normal. VISUALIZED PARANASAL SINUSES: Normal. MASTOIDS: Normal. BONES: Normal. SOFT TISSUES: Visualized nasopharynx is normal. Superficial soft tissues are normal. IMPRESSION: No acute intracranial findings. Reviewed, dictated and finalized at location A.
--- NOTE | ~2023-09-21 | MR_ITS ---
EXAMINATION: MR brain/brain stem wo/w con DATE: 09/22/2023 11:51 INDICATION: Right handed weakness and slurred speech TECHNIQUE: Magnetic resonance imaging (MRI) of the brain and brainstem was performed without and with 15 mL Multihance intravenous contrast. Sequences included sagittal and axial T1-weighted SE, axial d iffusion-weighted FS SE, axial T2*-weighted GRE, axial T2-weighted FLAIR, and axial T2-weighted FSE. Postcontrast axial and coronal T1-weighted SE was obtained. Apparent diffusion coefficient (ADC) maps were created. COMPARISON: None. FINDINGS: Small region of restricted diffusion along the primary motor cortex of the left precentral gyrus cons istent with acute infarct. There are additional small regions of encephalomalacia in the bilateral fr ontal lobe white matter consistent with sequela of chronic infarct. Additional small old lacunar infa rct at the right cerebellar hemisphere. No intracranial hemorrhage or abnormal intracranial mass lesi on. There are scattered areas of nonspecific increased T2-weighted signal intensity in the cerebral w katty matter, predominantly involving the deep and periventricular white matter. There are no intrapar enchymal signal abnormalities seen on the other pulse sequences. The ventricles are symmetric and nor mal in size. There are no abnormal extra-axial fluid collections. Flow voids are seen in the cerebral arteries on the T2-weighted sequences consistent with their expected patency. Left vertebral artery is dominant. Mild mucosal thickening bilateral ethmoid sinuses. Visualized orbits and soft tissues ar e unremarkable. There are no areas of abnormal enhancement on the post contrast images. IMPRESSION: 1. Small acute infarct along the motor cortex of the left frontal lobe precentral gyrus. 2. Additional small old infarcts in the bilateral frontal lobe white matter and in the right cerebell ar hemisphere along with moderate scattered calcific white matter T2 hyperintensity likely sequela of chronic small vessel ischemic disease. Reviewed, dictated and finalized at location A. IMPRESSION: 1. Small acute infarct along the motor cortex of the left frontal lobe precentr al gyrus. 2. Additional small old infarcts in the bilateral frontal lobe white matter and in the right cerebellar hemisphere along with moderate scattered calcific whit e matter T2 hyperintensity likely sequela of chronic small vessel ischemic dise ase.
--- NOTE | ~2023-09-21 | XR_ITS ---
XR chest 1V portable Ordering provider: Danita Dent PA-C History: 57 years Male with . weakness, right arm/hand tingling . Comparison: April 18, 2023 FINDINGS: MEDIASTINUM: The cardiac silhouette is not enlarged. LUNGS: No infiltrates, effusions or pneumothorax. OTHER: No free air under the diaphragm. Degenerative changes of the spine. IMPRESSION: No acute cardiopulmonary pathology. Reviewed, dictated and finalized at location A.
--- NOTE | ~2023-09-21 | CT_ITS ---
CTA brain carotid Ordering provider: Danita Dent PA-C History: . slurred speech, right hand weakness . Comparison: None. Technique: CT angiogram head and neck was performed following timed intravenous injection of contrast . Thin slice axial images and reformatted coronal images were obtained. Three dimensional reformatted images of the brain were also obtained using a [employer] workstation. Radiation reduction technique ut ilized. DLP is 976.75 mGy. FINDINGS: HEAD: --ANTERIOR AND MIDDLE CEREBRAL ARTERIES AND BRANCHES: Normal caliber and contour. --INTERNAL CAROTID ARTERIES: Mild atheromatous disease but no significant stenosis. No occlusion. --BASILAR ARTERY AND BRANCHES: Normal caliber and contour. No atheromatous disease. --POSTERIOR CEREBRAL ARTERIES: Normal caliber and contour of the left. The right shows irregularity a nd narrowing in the right P1 segment. --POSTERIOR COMMUNICATING ARTERIES: Not visualized which is probably related to congenital absence or small size. --ANEURYSM: None visualized. --BRAIN: Please refer to report of CT head performed the same day. --BONES AND SUPERFICIAL SOFT TISSUES: Please refer to report of CT head performed the same day. --PARANASAL SINUSES AND MASTOIDS: Please refer to report of CT head done the same day. NECK: --RIGHT CERVICAL CAROTID SYSTEM: No significant stenosis. Percent stenosis per NASCET criteria is 0% . No carotid dissection. Otherwise, no significant atheromatous disease or stenosis of the cervical c arotid system. --LEFT CERVICAL CAROTID SYSTEM: Mild atheromatous disease of the carotid bulb and proximal internal c arotid artery without significant stenosis. Percent stenosis per NASCET criteria is 10%. No carotid dissection. Otherwise, no significant atheromatous disease or stenosis of the cervical carotid system. --VERTEBRAL ARTERIES: Dominant left vertebral artery. Otherwise, Normal caliber and contour. --VISUALIZED AORTIC ARCH AND BRANCHING VESSELS: Mild atheromatous disease but no significant stenosis . --SOFT TISSUES: Normal. --CERVICAL SPINE: Age appropriate degenerative changes. IMPRESSION: 1. CTA head and neck. Percent stenosis per NASCET criteria is 10% on the left. 2. Irregularity and narrowing in the P1 segment of the right posterior cerebral artery. Reviewed, dictated and finalized at location A. IMPRESSION: 1. CTA head and neck. Percent stenosis per NASCET criteria is 10% on the left . 2. Irregularity and narrowing in the P1 segment of the right posterior cerebr al artery.
[2023-09-21 14:56] VITALS: BP 152/92; PULSE 74; RESP 16; TEMP 36.7; O2SAT 99
--- NOTE | 2023-09-21 17:16 | ECG_ITS ---
Test Date: 2023-09-21 17:51:11 Measurements Intervals [place] Rate: 75 P: 40 ND: 171 QRS: 11 QRSD: 87 T: 19 QT: 377 QTc: 423 Interpretive Statements SINUS RHYTHM No previous ECG available for comparison Electronically Signed On 09-22-2023 12:58:20 CDT by Hi Issa M.D.
--- NOTE | 2023-09-21 17:59 | ED.NEUROSD ---
HPI - Neuro Symptoms/Deficit General Chief Complaint: Neuro Symptoms/Deficit Stated Complaint: R HAND WEAKNESS X4D Time Seen by Provider: 09/21/23 17:16 Source: patient Mode of arrival: ambulatory Limitations: no limitations History of Present Illness HPI Narrative: This is a 57 year old male that presents to the ER for right sided weakness. Ongoing over the last several days. Reports he has had difficulty writing, typing and eating due to weakness in his right hand. Also reports intermittent slurred speech. Denies headache, vision changes, vomiting, other focal numbness or weakness. Related Data Allergies Allergy/AdvReac Type Severity Reaction Status Date / Time No Known Allergies Allergy Verified 09/21/23 14:44 Review of Systems Review of Systems: CONSTITUTIONAL: Denies fever EYES: Denies visual changes GASTROINTESTINAL: Denies vomiting NEUROLOGIC: Reports numbness and weakness. Denies headache All systems reviewed & are unremarkable except as noted in HPI and below PMFSH Past Medical History Medical History (Updated 09/21/23 @ 21:18 by Danita Dent PA-C) History of hyperlipidemia History of hypertension Uncontrolled diabetes mellitus Social History Social History Smoking status: Never smoker Alcohol intake: current Drinks per week: 3 Substance use: never Substance use type: does not use Do You Feel Safe in your Home?: Yes Lack of Transportation: No Lack of Food: Never True Current Housing: I Have Housing Concerned About Future Housing: No Difficulty Paying Gas/Electric Bills: No Difficulty Paying for Meds: No Currently Unemployed: YES Education: Associate Degree Difficulty w/ Childcare or Family Care: No Spiritual care concerns: No Exam Narrative: GENERAL: Well-appearing, well-nourished, and in no acute distress. HEAD: Normocephalic, atraumatic. EYES: PERRLA and EOMI. ENT: Nares clear, no rhinorrhea or epistaxis. Mucous membranes moist. Oropharynx without tonsillar hypertrophy exudate or other lesions. Bilateral TMs pearly rutledge non-bulging NECK: Supple. No adenopathy or masses. CHEST: Clear to auscultation. No respiratory distress. No wheezes rales or rhonchi HEART: Regular rate and rhythm. No murmur heard. Normal peripheral pulses. EXTREMITIES: Normal range of motion. No edema. Strength equal in bilateral lower extremities (5/5). Casing Fluid Tender strength 4/5 RUE, 5/5 LUE SKIN: Warm, dry, no rash. NEURO: No focal deficits. Alert and oriented x3. CN II-XII grossly intact PSYCH: Normal mood and affect Course Course Emergency Course: Patient and family updated on workup and recommendation for admission for further evaluation Consultations Consultation #1: spoke with hospitalist about patient and workup who accepts admission Date: 09/21/23 Consultation #2: spoke with neurologist who will consult. Recommend CTA Date: 09/21/23 Vital Signs Vital signs: Vital Signs Temperature 98.1 F 09/21/23 14:56 Pulse Rate 74 09/21/23 14:56 Respiratory Rate 16 09/21/23 14:56 Blood Pressure 152/92 H 09/21/23 14:56 Pulse Oximetry 99 09/21/23 14:56 Oxygen Delivery Room Air 09/21/23 14:56 Temperature 98.1 F 09/21/23 14:56 Pulse Rate 75 09/21/23 19:27 Respiratory Rate 19 09/21/23 19:27 Blood Pressure 164/103 H 09/21/23 20:30 Pulse Oximetry 100 09/21/23 19:27 Oxygen Delivery Room Air 09/21/23 14:56 MDM - Neuro Symptoms/Deficit MDM Narrative Medical decision making narrative: Patient presents to the emergency department for right hand weakness and slurred speech. Ongoing over the last several days. His vitals are stable. He is noted to have right hand weakness, otherwise no focal deficits on exam. CBC and metabolic panel without concerning findings. CT brain without acute findings. Chest x-ray without acute cardiopulmonary abnormality. Patient and family updated on work
[2023-09-21 18:05] LABS: Basophils Absolute Auto 0.1 K/mm3 (0.0-0.1); Basophils Percent Auto 1.2 % (0.2-1.2); Eosinophils Absolute Auto 0.2 K/mm3 (0-0.3); Eosinophils Percent Auto 3.7 % (0-4.4); Hematocrit 37.6 % (42.0-52.0); Hemoglobin 13.3 g/dL (14.0-18.0); Immature Granulocyte Absolute 0.01 K/mm3 (0.00-0.031); Immature Granulocyte Percent A 0.2 % (0-0.5); Lymphocytes Absolute Auto 1.46 K/mm3 (0.9-3.2); Lymphocytes Percent Auto 25.5 % (18.3-44.2); Mean Corpuscular HGB Conc 35.4 g/dl (32-36); Mean Corpuscular Hemoglobin 31.5 pg (26-34); Mean Corpuscular Volume 89.1 fl (80-100); Mean Platelet Volume 10.2 fl (7.4-10.4); Monocytes Absolute Auto 0.9 K/mm3 (0.1-0.6); Monocytes Percent Auto 15.9 % (2.6-8.5); Neutrophils Absolute Auto 3.1 K/mm3 (1.3-6.7); Neutrophils Percent Auto 53.5 % (45.5-73.1); Platelet Count Result 252 k/mm3 (150-375); Red Blood Count 4.22 M/mm3 (4.6-6.20); Red Cell Distribution Width 12.4 % (11.5-14.5); White Blood Count 5.7 K/mm3 (4.5-10.0)
[2023-09-21 18:16] LABS: Alanine Aminotransferase 23 U/L (6-50); Albumin Level 4.6 g/dL (3.5-5.1); Alkaline Phosphatase 90 U/L (38-126); Anion Gap 9 mmol/L (4-12); Aspartate Amino Transferase 24 U/L (17-59); Bilirubin,Total 0.6 mg/dL (0.2-1.3); Blood Urea Nitrogen 18 mg/dL (9-20); Calcium 9.6 mg/dL (8.4-10.2); Carbon Dioxide 25 mmol/L (22-30); Chloride 104 mmol/L (98-107); Estimated CRCL calculation 84 ml/min; Estimated Glomerular Filt Rate > 60; Glucose 176 mg/dL (65-110); Partial Thromboplastin Time 25.1 Seconds (22.3-36.8); Potassium 4.2 mmol/L (3.4-5.0); Prothrombin Time 13.8 Seconds (11.1-14.7); Sodium 138 mmol/L (137-145)
[2023-09-21 18:27] LABS: Troponin I < 0.012 ng/mL (0.000-0.034)
[2023-09-21 19:27] VITALS: BP 184/113; PULSE 75; PULSE 80; RESP 16; RESP 19; O2SAT 100; O2SAT 99
--- NOTE | 2023-09-21 19:56 | PM.IMHP ---
H&P: HPI History of Present Illness Date/Time: 09/21/23 19:56 Chief Complaint: right hand weakness Narrative: This is a 57-year-old male with past medical history significant for type diabetes mellitus, hypertension, dyslipidemia. Patient presents to the emergency room due to 1 day duration of right hand numbness tingling of the 1st and 2nd finger with weakness. Patient has had headaches denies any vision changes denies lightheadedness, dizziness, syncope or near-syncope, denies gait disturbance has had a slurred speech. Preliminary workup has been essentially noted XR chest 1V portable Ordering provider: Danita Dent PA-C History: 57 years Male with . weakness, right arm/hand tingling . Comparison: April 18, 2023 FINDINGS: MEDIASTINUM: The cardiac silhouette is not enlarged. LUNGS: No infiltrates, effusions or pneumothorax. OTHER: No free air under the diaphragm. Degenerative changes of the spine. IMPRESSION: No acute cardiopulmonary pathology. CT brain wo con Ordering provider: Danita Dent PA-C History: 57 years Male with . slurred speech, weakness . Comparison: April 18, 2023 Technique: CT of the head without contrast. Radiation reduction technique utilized. DLP is 605.33mGy. FINDINGS: BRAIN PARENCHYMA AND CSF SPACES: Mild leukoaraiosis and diffuse cortical atrophy. Mild atheromatous disease. 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 No midline shift, mass effect or hemorrhage. The brain parenchyma and CSF spaces are otherwise normal. VISUALIZED PARANASAL SINUSES: Normal. MASTOIDS: Normal. BONES: Normal. SOFT TISSUES: Visualized nasopharynx is normal. Superficial soft tissues are normal. IMPRESSION: No acute intracranial findings. CTA brain carotid Ordering provider: Danita Dent PA-C History: . slurred speech, right hand weakness . Comparison: None. Technique: CT angiogram head and neck was performed following timed intravenous injection of contrast. Thin slice axial images and reformatted coronal images were obtained. Three dimensional reformatted images of the brain were also obtained using a [employer] workstation. Radiation reduction technique utilized. DLP is 976.75 mGy. FINDINGS: HEAD: --ANTERIOR AND MIDDLE CEREBRAL ARTERIES AND BRANCHES: Normal caliber and contour. --INTERNAL CAROTID ARTERIES: Mild atheromatous disease but no significant stenosis. No occlusion. --BASILAR ARTERY AND BRANCHES: Normal caliber and contour. No atheromatous disease. --POSTERIOR CEREBRAL ARTERIES: Normal caliber and contour of the left. The right shows irregularity and narrowing in the right P1 segment. --POSTERIOR COMMUNICATING ARTERIES: Not visualized which is probably related to congenital absence or small size. --ANEURYSM: None visualized. --BRAIN: Please refer to report of CT head performed the same day. --BONES AND SUPERFICIAL SOFT TISSUES: Please refer to report of CT head performed the same day. --PARANASAL SINUSES AND MASTOIDS: Please refer to report of CT head done the same day. NECK: --RIGHT CERVICAL CAROTID SYSTEM: No significant stenosis. Percent stenosis per NASCET criteria is 0%. No carotid dissection. Otherwise, no significant atheromatous disease or stenosis of the cervical carotid system. --LEFT CERVICAL CAROTID SYSTEM: Mild atheromatous disease of the carotid bulb and proximal internal carotid artery without significant stenosis. Percent stenosis per NASCET criteria is 10%. No carotid dissection. Otherwise, no significant atheromatous disease or stenosis of the cervical carotid system. --VERTEBRAL ARTERIES: Dominant left vertebral artery. Otherwise, Normal caliber and contour. --VISUALIZED AORTIC ARCH AND BRANCHING VESSELS: Mild atheromatous disease but no significant stenosis. --SOFT TISSUES: Normal. --CERVICAL SPINE: Age appropriate degenerative changes. IMPRESSION: 1. CTA head and neck. Percent stenosis per NASCET criteria
[2023-09-21 20:30] VITALS: BP 164/103
[2023-09-21 21:25] VITALS: BP 166/102; PULSE 77; RESP 17; O2SAT 97
--- NOTE | 2023-09-21 22:49 | ADMGEN ---
This patient, Marito Wong, was admitted to Medical Room 261-01. Patient/family oriented to hospital policies and general routines including ID bracelet, bed and alarms, visiting hours, pain management, procedures, bathroom and other care routines, personal items, smoking policy, room service/diet, and visiting hours. Information on how to activate the Rapid Response Team has been discussed. Patient/Family are encouraged to report perceived risks to care and to ask questions if they do not understand what they are told or what they should do.
[2023-09-21 22:59] VITALS: BMI 29.9
[2023-09-21 23:00] VITALS: BP 155/100; PULSE 76; RESP 20; TEMP 36.8; O2SAT 99
[2023-09-22] VITALS (9 sets, daily range): BP systolic 136–164; BP diastolic 85–98; PULSE 72–82; RESP 16–18; TEMP 36.6–36.9; O2SAT 98–100
--- NOTE | 2023-09-22 08:48 | PM.IMPN ---
Progress Note: A&P Assessment and Plan (1) Right hand weakness: Code(s): R29.898 - Other symptoms and signs involving the musculoskeletal system Status: Acute Assessment and Plan: 09/22/23: Head CT was negative CTA of the head and neck showed 10% stenosis in the left cervical carotid bulbs, irregularity of narrowing in the P 1 segment of the right posterior cerebral artery Plan for MRI of the brain and brainstem today Neurology consulted Will check a lipid panel today Atorvastatin 80 mg daily ordered Start aspirin 81 mg daily Allow for permissive hypertension Neuro checks q.4 hours Continue cardiac monitoring (2) Type 2 diabetes mellitus: Code(s): E11.9 - Type 2 diabetes mellitus without complications Status: Acute Assessment and Plan: 09/22/23: Blood glucose ranging 176-223 Hemoglobin A1c greater than 14 on 04/18/2023 Will recheck hemoglobin A1c today Accu-Cheks AC and HS Continue metformin Diabetic diet Hypoglycemic protocol in place (3) Hypertension: Code(s): I10 - Essential (primary) hypertension Status: Chronic Assessment and Plan: 09/22/23: blood pressure ranging 155/98-184/113 Hold amlodipine and carvedilol Allow for permissive hypertension for 24-48 hours Will check TSH as well today (4) Dyslipidemia: Code(s): E78.5 - Hyperlipidemia, unspecified Status: Chronic Assessment and Plan: 09/22/23: Increased Atorvastatin to 80mg daily Added Aspirin 81 mg daily Lipid panel ordered Time Spent With Patient Time with patient: 25 - 35 minutes Subjective Date/time seen: 09/22/23 08:48 Interval history: This is a 57-year-old male presented to the hospital on 09/21/2023 with right-sided weakness. Workup in the hospital included a chest x-ray which was negative. A head CT which was also negative. Head and neck CTA showed 10% stenosis on the left cervical carotid bulb, irregularity and narrowing in P1 segment of the right posterior cerebral artery. Initial labs revealed a hemoglobin of 13.3, INR 1 troponin was normal. Neurology was consulted. On examination today patient is alert and oriented x3, sitting in the chair. Patient denies any fever, chills, nausea, vomiting, diarrhea, abdominal pain, chest pain, shortness of breath, headache, lightheadedness, dizziness, or vision changes. Patient endorses weakness in right upper extremity along with associated numbness and tingling in first finger. He noticed that the symptoms started a few days ago when he was at work and was unable to write with his right hand. Plan for MRI of the brain and brainstem with and without contrast today. Review of Systems Review of Systems: All systems reviewed & are unremarkable except as noted in HPI and below Constitutional: Constitutional: Reports as per HPI and Reports no additional constitutional complaints Eyes: Eyes: Reports as per HPI and Reports no additional eye complaints ENT: Reports system reviewed and no additional complaints, except as documented and Reports as per HPI Cardiovascular: Cardiovascular: Reports as per HPI and Reports no additional cardiovascular complaints Respiratory: Respiratory: Reports as per HPI and Reports no additional respiratory complaints Gastrointestinal: Gastrointestinal: Reports as per HPI and Reports no additional gastrointestinal complaints Genitourinary: Genitourinary: Reports no additional male genitourinary complaints and Reports as per HPI Musculoskeletal: Musculoskeletal: Reports no additional musculoskeletal complaints and Reports as per HPI Integumentary/Breasts: Skin/Breast: Reports system reviewed and no additional complaints, except as docu and Reports as per HPI Neurologic: Reports system reviewed and no additional complaints, except as documented and Reports as per HPI Psychiatric: Psychiatric: Reports no additional psychiatric complaints and Reports as per HPI Exam Narrative: Gene
[2023-09-22 09:17] LABS: Basophils Absolute Auto 0.1 K/mm3 (0.0-0.1); Basophils Percent Auto 1.1 % (0.2-1.2); Eosinophils Absolute Auto 0.2 K/mm3 (0-0.3); Eosinophils Percent Auto 3.1 % (0-4.4); Hematocrit 38.3 % (42.0-52.0); Hemoglobin 13.6 g/dL (14.0-18.0); Immature Granulocyte Absolute 0.02 K/mm3 (0.00-0.031); Immature Granulocyte Percent A 0.4 % (0-0.5); Lymphocytes Absolute Auto 0.97 K/mm3 (0.9-3.2); Lymphocytes Percent Auto 17.8 % (18.3-44.2); Mean Corpuscular HGB Conc 35.5 g/dl (32-36); Mean Corpuscular Hemoglobin 31.6 pg (26-34); Mean Corpuscular Volume 88.9 fl (80-100); Mean Platelet Volume 10.1 fl (7.4-10.4); Monocytes Absolute Auto 0.7 K/mm3 (0.1-0.6); Neutrophils Absolute Auto 3.5 K/mm3 (1.3-6.7); Neutrophils Percent Auto 64.6 % (45.5-73.1); Platelet Count Result 250 k/mm3 (150-375); Red Blood Count 4.31 M/mm3 (4.6-6.20); Red Cell Distribution Width 12.4 % (11.5-14.5); White Blood Count 5.5 K/mm3 (4.5-10.0)
[2023-09-22 09:25] LABS: Cholesterol 158 mg/dL (0-200); HDL Direct 35 mg/dL; Triglycerides 262 mg/dL (<150)
--- NOTE | 2023-09-22 09:25 | WPDNEURCNPN ---
Assessment and Plan Assessment and plan (1) Right hand weakness: Code(s): R29.898 - Other symptoms and signs involving the musculoskeletal system Status: Acute (2) Type 2 diabetes mellitus: Code(s): E11.9 - Type 2 diabetes mellitus without complications Status: Acute (3) Hypertension: Code(s): I10 - Essential (primary) hypertension Status: Chronic (4) Dyslipidemia: Code(s): E78.5 - Hyperlipidemia, unspecified Status: Chronic Plan Marito Wong is a 57 year old male with a history of HTN, hLD, DM presenting due to concern for stroke. due to R sided weakness for several days. MRI brain shows acute L posterior frontal infarct. CTA brain/carotid showed some abnormalities in the P1 segment of R BUILDING COORDINATOR, but that would not explain the distribution of this potential stroke. - Start Aspirin 81mg daily - Add Plavix 75mg daily x 3 weeks followed by aspirin montherapy - LDL and A1c from this admission are pending. Goal LDL is <70. Increase Lipitor to 80mg daily - Echo with bubble study - If echo is unrevealing, will plan to discharge with 30 day event monitor as he has old bihemispheric infarcts on MRI, that are not explained by CTA findings. Consult date: 09/22/23 Reason for consult: Concern for stroke HPI: Marito Wong is a 57 year old male with a history of HTN, hLD, DM presenting due to concern for stroke. Patient presented on 09/20 after having a several days history of R sided weakness. He presented to [place] ED where he has documented R sided weakness. Initial BP was in the 150-160s systolic. EKG read as normal sinus rhythm. CT head showed no acute changes. CTA brain/carotid read as 'irregularity/narrowing in P1 segment of R BUILDING COORDINATOR . BP has been in the 150s for past two reading. His LDL from Apr 2023 is 105. LDL from this admission is 88. His A1c from Apr 2023 was documented as >14, but no 9 from this admission. He does take Lipitor 40gmdaily daily. He is not on any blood thinners. MRI brain done this mornin. Small acute infarct along the motor cortex of the left frontal lobe precentral gyrus. 2. Additional small old infarcts in the bilateral frontal lobe white matter and in the right cerebellar hemisphere along with moderate scattered calcific white matter T2 hyperintensity likely sequela of chronic small vessel ischemic disease Review of Systems Review of Systems: All systems reviewed & are unremarkable except as noted in HPI and below PMFSH Past Medical History Medical History History of hyperlipidemia History of hypertension Uncontrolled diabetes mellitus Family History Family History Father Heart disease Cerebrovascular accident Mother Heart disease Social History Social History Smoking status: Never smoker Alcohol intake: current Drinks per week: 2 Substance use: never Substance use type: does not use Do You Feel Safe in your Home?: Yes Lack of Transportation: No Lack of Food: Never True Current Housing: I Have Housing Concerned About Future Housing: No Difficulty Paying Gas/Electric Bills: No Difficulty Paying for Meds: No Currently Unemployed: No Education: Associate Degree Difficulty w/ Childcare or Family Care: No Spiritual care concerns: No Meds Home Medications and Allergies Home Medications Medication Instructions Recorded Confirmed Type atorvastatin 40 mg tablet 40 mg PO DAILY 30 days #30 tabs 04/21/23 09/21/23 Rx insulin syringe-needle U-100 1 mL #1 [facility] [place] 04/21/23 09/21/23 Rx 31 gauge x 15/64 (BD Veo Insulin Syringe Ultra-Fine) pen needle, diabetic 32 gauge x #1 pkg 04/21/23 09/21/23 Rx 1/4 (BD Ultra-Fine Micro Pen Needle) pen needle, diabetic 32 gauge x #1 [facility] ([place] 04/21/23 Rx 5/32 (BD Ultra-Fine Kathleen Pen Needle) amlodipin
[2023-09-22 09:28] LABS: Alanine Aminotransferase 24 U/L (6-50); Albumin Level 4.5 g/dL (3.5-5.1); Alkaline Phosphatase 80 U/L (38-126); Anion Gap 9 mmol/L (4-12); Aspartate Amino Transferase 26 U/L (17-59); Bilirubin,Total 0.8 mg/dL (0.2-1.3); Blood Urea Nitrogen 13 mg/dL (9-20); Calcium 9.6 mg/dL (8.4-10.2); Carbon Dioxide 27 mmol/L (22-30); Chloride 104 mmol/L (98-107); Estimated CRCL calculation 83 ml/min; Estimated Glomerular Filt Rate > 60; Glucose 203 mg/dL (65-110); Potassium 4.4 mmol/L (3.4-5.0); Sodium 140 mmol/L (137-145)
[2023-09-22 09:35] LABS: LDL Cholesterol Direct 88 mg/dL
[2023-09-22] MEDS: lisinopriL 20 MG TABLET 40 MG PO (09:38)
[2023-09-22] MEDS: metFORMIN HCL 500 MG TABLET PO ×2 (09:38→17:45)
[2023-09-22] MEDS: ASPIRIN 81 MG ENTERIC TABLET PO (09:38)
[2023-09-22] MEDS: ATORVASTATIN 40 MG TABLET 80 MG PO (09:38)
[2023-09-22 11:56] LABS: Glucose Point of Care 194 mg/dl (65-105)
[2023-09-22] MEDS: CLOPIDOGREL BISULFATE 75 MG TABLET PO (14:59)
[2023-09-22 17:53] LABS: Glucose Point of Care 160 mg/dl (65-105)
[2023-09-22] MEDS: INSULIN GLARGINE (*BKC) 100 UNITS/ML 20 UNITS SUB-Q (20:52)
[2023-09-22] MEDS: INSULIN ASPART (*BKC) 100 UNITS/ML SUB-Q (20:52)
[2023-09-22 20:54] LABS: Glucose Point of Care 219 mg/dl (65-105)
[2023-09-23] VITALS: PULSE 86
--- NOTE | 2023-09-23 | ECHO_ITS ---
Patient Info Name: Marito Wong Age: 57 years : 1965 Gender: Male Ht: 64 in Wt: 174 lbs BSA: 1.91 m2 HR: 60 bpm BP: 133 / 83 mmHg Heart Rhythm: Sinus Rhythm Technical Quality: Fair Exam Date: 09/23/2023 7:45 AM Exam Location: Echo Lab Patient Status: Inpatient Admit Date: 09/21/2023 Staff Ordering Physician: Liset Alexandra MD Eligibility Manager: Miguel Puentes RDCS Attending Provider: Bridget Norwood APRN Exam Type: CA echo doppler w bubble study Study Info Indications - Acute Stroke Complete two-dimensional, color flow and Doppler transthoracic echocardiogram is performed with agitated saline. Contrast/Agitated Saline Contrast/Ag. Saline: Agitated Saline Amount: 14.00 ml IV Access Condition: patent with no signs of infiltration Summary 1. Normal left ventricular size and systolic function with grade 1 diastolic noncompliance. 2. Mild aortic regurgitation. 3. Mild left atrium enlarged. 4. Sinus rhythm. 5. No apparent/likely cardioembolic source was identified. Left Ventricle Left ventricular chamber dimension is normal. Left ventricular systolic function is normal, estimated at 65-70%. The left ventricular diastolic function is grade I diastolic dysfunction. Right Ventricle Right ventricular chamber dimension is normal. Left Atria Left atrial chamber dimension is mildly enlarged. Right Atria Right atrial chamber dimension is normal. Aortic Valve The aortic valve is normal. There is mild aortic valve regurgitation. Pulmonic Valve The pulmonic valve is normal. There is trace pulmonic regurgitation. Mitral Valve The mitral valve has normal leaflets. Tricuspid Valve The tricuspid valve leaflets are normal. Pericardium/Pleural The pericardium appears normal. Aorta The aortic root size at the sinus of Valsalva is normal. Left Ventricular Outflow Tract Name Value Normal LVOT 2D LVOT Diameter 2.0 cm LVOT Doppler LVOT Peak Gradient 5 mmHg LVOT Mean Gradient 2 mmHg LVOT VTI 21 cm LVOT VTI/AV VTI Ratio 0.7 LVOT Stroke Volume 64 ml LVOT CO 4.4 l/min LVOT CI 2.3 l/min/m2 Pulmonic Valve Name Value Normal RVOT Doppler RVOT Peak Gradient 2 mmHg PV Doppler PV Peak Gradient 3 mmHg PV Regurgitation Doppler W[place] Peak End Diastolic Velocity 68 cm/s Mitral Valve Name Value Normal
[2023-09-23 04:00] VITALS: PULSE 60
[2023-09-23 05:14] VITALS: BP 133/83; PULSE 78; RESP 18; TEMP 36.6; O2SAT 100
[2023-09-23 08:00] VITALS: PULSE 73
[2023-09-23 08:53] LABS: Glucose Point of Care 166 mg/dl (65-105)
[2023-09-23] MEDS: ATORVASTATIN 40 MG TABLET 80 MG PO (08:53)
[2023-09-23] MEDS: metFORMIN HCL 500 MG TABLET PO (08:53)
[2023-09-23] MEDS: lisinopriL 20 MG TABLET 40 MG PO (08:53)
[2023-09-23] MEDS: CLOPIDOGREL BISULFATE 75 MG TABLET PO (08:53)
[2023-09-23] MEDS: ASPIRIN 81 MG ENTERIC TABLET PO (08:53)
[2023-09-23 11:48] LABS: Glucose Point of Care 183 mg/dl (65-105)
[2023-09-23 12:00] VITALS: PULSE 71
--- NOTE | 2023-09-23 12:32 | PM.DS ---
DS: Admitting Diagnosis Discharge Date 09/23/23 Admitting Diagnosis Right hand weakness Type 2 diabetes mellitus Hypertension Dyslipidemia DS: Discharge Diagnosis Discharge Diagnosis (1) Right hand weakness: Code(s): R29.898 - Other symptoms and signs involving the musculoskeletal system Status: Acute (2) Type 2 diabetes mellitus: Code(s): E11.9 - Type 2 diabetes mellitus without complications Status: Acute (3) Hypertension: Code(s): I10 - Essential (primary) hypertension Status: Chronic (4) Dyslipidemia: Code(s): E78.5 - Hyperlipidemia, unspecified Status: Chronic DS: Summary Hospital Course Reason for hospitalization: Right hand weakness Type 2 diabetes mellitus Hypertension Dyslipidemia Hospital Course: Final diagnosis: Acute CVA Status at Discharge Cognitive/behavioral status at discharge: Alert oriented x3 Functional status at discharge: independent ambulation Overall status at discharge: patient is progressing back to baseline Time Spent with Patient Time attestation: Total time spent providing and/or coordinating discharge services: Time spent: Greater than 30 minutes Exam Narrative: General: In no acute distress, well nourished Head: atraumatic, no encephalopathy Eyes: EOMI, PERRLA, sclera clear ENT: moist mucous membranes, nasal passages clear Neck: supple, no JVD, no adenopathy, trachea midline Cardiac: Normal S1 and S2. RRR, No murmur, gallops or friction rubs, peripheral pulses intact. Respiratory: Lungs clear to auscultation, no adventitious lung sounds, currently on room air Gastrointestinal: soft, non-distended, non-tender, normoactive bowel sounds. : voiding without difficulty. Extremities: moves all extremities well, no edema, good ROM Skin: clean, dry, intact. No wounds or lesions. Neuro: Alert and oriented x4, cranial nerves intact, no neuro deficits. REports numbness and tingling in pointer finger with associated weakness on left greater than right 4/5. Facial features are symmetrical, speech is normal, he denies vision changes or weakness in lower extremities. Denies any headache. Psych: normal mood, normal affect, interactive DS: Data Data Completed and Pending Completed studies during hospitalization: Brain MRI Head/neck CTA Head CT Chest x-ray Echo Pending studies at discharge: None Labs on day of discharge: Labs from last 24 hours 09/23/23 09/23/23 09/22/23 11:45 08:50 20:14 POC Capillary Glucose 183 H 166 H 219 H 09/22/23 17:33 POC Capillary Glucose 160 H Procedures/Treatments: None Discharge Plan Discharge Attending physician on discharge: Tyrese Hansen Consulting providers: Liset Alexandra Discharging Clinician: Bridget Norwood Anticipated Discharge Date/Time: 09/23/23 12:07 Patient Disposition: Home, Self-Care Activity: as tolerated Diet: as tolerated Discharge Instructions: continue aspirin, Plavix, atorvastatin as directed. Of note, we increased your atorvastatin dose to 80mg daily. A new prescription is provided. If you still have the 40 mg dosage at home, take 2 a day until gone and then start your new prescription. you will need to obtain a cardiac Holter monitor and wear it for 30 days per neurology recommendation. Since you do not have a Sheet Tester you will have to make an appointment with them first to get this placed. Please call Cardiolgist for appointment Your Echo is still pending, we will call you with the results. follow-up with neurology within 2 weeks continue taking your Lantus 20 units at bedtime as you normally do Patient Instructions: Antibiotic Form, Aspirin (By mouth), Atorvastatin (By mouth), Clopidogrel (By mouth), Ischemic Stroke (DC), Hypertension (DC) Patient Language: Croatian Stand Alone Forms: General Discharge Information Follow-up/Referrals: Ishmael Friedman MD [Physician] - (For 30 day event monitor) [facility]
[2023-09-23 12:49] LABS: Basophils Absolute Auto 0.1 K/mm3 (0.0-0.1); Basophils Percent Auto 0.8 % (0.2-1.2); Eosinophils Absolute Auto 0.1 K/mm3 (0-0.3); Eosinophils Percent Auto 2.1 % (0-4.4); Hemoglobin 13.8 g/dL (14.0-18.0); Immature Granulocyte Absolute 0.02 K/mm3 (0.00-0.031); Immature Granulocyte Percent A 0.3 % (0-0.5); Lymphocytes Absolute Auto 1.12 K/mm3 (0.9-3.2); Lymphocytes Percent Auto 18.4 % (18.3-44.2); Mean Corpuscular HGB Conc 35.4 g/dl (32-36); Mean Corpuscular Hemoglobin 31.7 pg (26-34); Mean Corpuscular Volume 89.4 fl (80-100); Mean Platelet Volume 9.8 fl (7.4-10.4); Monocytes Absolute Auto 0.8 K/mm3 (0.1-0.6); Neutrophils Percent Auto 65.4 % (45.5-73.1); Platelet Count Result 256 k/mm3 (150-375); Red Blood Count 4.36 M/mm3 (4.6-6.20); Red Cell Distribution Width 12.4 % (11.5-14.5); White Blood Count 6.1 K/mm3 (4.5-10.0)
[2023-09-23 13:03] LABS: Alanine Aminotransferase 22 U/L (6-50); Albumin Level 4.5 g/dL (3.5-5.1); Alkaline Phosphatase 84 U/L (38-126); Anion Gap 10 mmol/L (4-12); Aspartate Amino Transferase 23 U/L (17-59); Bilirubin,Total 0.8 mg/dL (0.2-1.3); Blood Urea Nitrogen 13 mg/dL (9-20); Calcium 9.7 mg/dL (8.4-10.2); Carbon Dioxide 25 mmol/L (22-30); Chloride 103 mmol/L (98-107); Estimated CRCL calculation 83 ml/min; Estimated Glomerular Filt Rate > 60; Glucose 178 mg/dL (65-110); Potassium 3.8 mmol/L (3.4-5.0); Sodium 138 mmol/L (137-145)
[2023-09-23 14:00] VITALS: BP 162/91; PULSE 80; RESP 18; TEMP 37.1; O2SAT 99
== END 2023-09-23 14:50 | disposition home or self-care (01) ==
LOC: ANHED 21:18 → ANH2MED 09-22 07:35
PROVIDERS: Admitting Provider Internal Medicine; Emergency Provider Physician Assistant; PCP Emergency Medicine; Visit Provider Nurse Practitioner Acute Care
DX: I63.9 Cerebral infarction, unspecified (principal); R53.1 Weakness; I10 Essential (primary) hypertension; E78.5 Hyperlipidemia, unspecified; E11.9 Type 2 diabetes mellitus without complications; Z79.4 Long term (current) use of insulin
CPT/HCPCS: 36415; 70450; 70496; 70498; 70553; 71045; 80053; 80061; 82948; 83036; 84443; 84484; 85025; 85610; 85730; 93005; 93306; 96375; 99285; A9270; A9577; G0378; J1815; Q9967